=== PATIENT | female | born 1950 | race Two or more races ===

== ENCOUNTER 2025-07-08 15:38 | Emergency (ER) | payer OTHER ==
[~2025-07-08] VITALS: Ht 157.5 cm; Wt 60.3 kg
[2025-07-08] MEDS ORDERED: FLONASE16 GM NS (15:54)
[2025-07-08] MEDS ORDERED: SYNTHROID88 MCG PO (15:54)
[2025-07-08] MEDS ORDERED: LIPITOR20 MG (15:54)
[2025-07-08] MEDS ORDERED: DIPHENHYDRAMINE HCL 50 MG/ML VIAL 1ML ONE (17:49)
[2025-07-08] MEDS ORDERED: METHYLPREDNISOLONE SOD SUCC 125 MG VIAL ONE (17:50)
[2025-07-08] MEDS ORDERED: METHYLPREDNISOLONE SOD SUCC 125 MG VIAL IV ONE (18:00)
[2025-07-08] MEDS ORDERED: DIPHENHYDRAMINE HCL 50 MG/ML VIAL 1ML IV ONE (18:00)
[2025-07-08 18:22] LABS: BASO % 1.0 % (0.1-1.2); EOS # 0.39 (0.04-0.54); EOS % 4.1 % (0.7-7.0); LYMPH # 2.45 (1.18-3.74); LYMPH % 26.0 % (19.3-53.1); MEAN PLATELET VOLUME 11.50 fl (9.4-12.4); MONO # 0.64 (0.24-0.82); MONO % 6.8 % (4.7-12.5); NEUT # 5.83 (1.56-6.13); NEUT % 61.8 % (34.0-71.1); RED CELL DISTRIBUTION WIDTH 14.5 % (11.6-14.4)
[2025-07-08 18:50] LABS: ALT/SGPT 31.0 U/L (12-78); AST/SGOT 31.0 U/L (15-37); BILIRUBIN TOTAL 0.36 mg/dL (0.3-1.2); BUN CREA RATIO 20.0 (7.0-25.0); CREATININE SERUM 1.22 mg/dL (0.55-1.02); GFR 42.97; GLOBULINA 3.8 G/DL (2.4-3.5); GLUCOSE FASTING 110.0 mg/dL (65-100); OSMOLALITY SERUM 279.0 MOSM/KG (275-295)
[2025-07-08 19:53] LABS: URINE APPEARANCE Clear; URINE BILIRRUBIN Negative (NEGATIVE); URINE BLOOD NHT; URINE COLOR Yellow; URINE GLUCOSE Negative (NEGATIVE); URINE KETONE Negative (NEGATIVE); URINE LEUKOCYTE Moderate; URINE NITRATE Negative; URINE PROTEIN Negative (NEGATIVE); URINE UROBILINOGEN 0.2 E.U./dl
[2025-07-08 19:57] LABS: URINE BACTERIA 347.7 uL (0.0-1933); URINE EPITHELIAL CELLS 13.5 uL (0.0-38.8); URINE WBC 405.3 uL (0.0-23.2)
[2025-07-08 20:09] LABS: COVID-19 AG NEGATIVE (NEGATIVE)
[2025-07-08 20:09] LABS: URINE CAST 0.14 uL (0.0-1.40); URINE RBC 1.6 uL (0.0-20.8)
== END 2025-07-09 | disposition home or self-care (01) ==
LOC: ER 16:18
PROVIDERS: Emergency Medicine
DX: N39.0 Urinary tract infection, site not specified (principal); K57.90 Diverticulosis of intestine, part unspecified, without perforation or abscess without bleeding; Z20.822 Contact with and (suspected) exposure to COVID-19; I10 Essential (primary) hypertension; E03.8 Other specified hypothyroidism; Z91.041 Radiographic dye allergy status
CPT/HCPCS: 36415; 74177; 96365; 99284; J1200; J3490; Q9965

== ENCOUNTER 2025-07-15 21:09 | Emergency (ER) | payer OTHER ==
[~2025-07-15] VITALS: Ht 157.5 cm; Wt 59.9 kg
[~2025-07-15 21:09] MED LIST: FLONASE16 GM NS; LIPITOR20 MG; SYNTHROID88 MCG PO
[2025-07-15 21:34] VITALS: BP 181/73; O2SAT 97
[2025-07-15] MEDS ORDERED: PIPERACILLIN/TAZOBACTAM SODIUM 3.375 GM VIAL IV ONE (22:00)
[2025-07-15] MEDS ORDERED: FAMOtidine 10 MG/ML (4ML VIAL) IV ONE (22:00)
[2025-07-15 23:08] LABS: BASO % 0.5 % (0.1-1.2); EOS # 0.46 (0.04-0.54); EOS % 4.8 % (0.7-7.0); LYMPH # 2.59 (1.18-3.74); LYMPH % 27.2 % (19.3-53.1); MEAN PLATELET VOLUME 11.60 fl (9.4-12.4); MONO # 0.82 (0.24-0.82); MONO % 8.6 % (4.7-12.5); NEUT # 5.55 (1.56-6.13); NEUT % 58.5 % (34.0-71.1); RED CELL DISTRIBUTION WIDTH 14.6 % (11.6-14.4)
[2025-07-15 23:28] LABS: URINE APPEARANCE Clear; URINE BILIRRUBIN Negative (NEGATIVE); URINE BLOOD Negative; URINE COLOR Dark Yellow; URINE GLUCOSE Negative (NEGATIVE); URINE KETONE Negative (NEGATIVE); URINE LEUKOCYTE Negative; URINE NITRATE Positive; URINE PROTEIN Negative (NEGATIVE); URINE UROBILINOGEN 1.0 E.U./dl
[2025-07-15 23:29] LABS: URINE EPITHELIAL CELLS 1.6 uL (0.0-38.8); URINE WBC 2.6 uL (0.0-23.2)
[2025-07-15 23:33] LABS: ALT/SGPT 28.0 U/L (12-78); AST/SGOT 21.0 U/L (15-37); BILIRUBIN TOTAL 0.33 mg/dL (0.3-1.2); BUN CREA RATIO 22.0 (7.0-25.0); CREATININE SERUM 0.88 mg/dL (0.55-1.02); GFR 62.64; GLOBULINA 3.5 G/DL (2.4-3.5); GLUCOSE FASTING 105.0 mg/dL (65-100); OSMOLALITY SERUM 284.0 MOSM/KG (275-295)
[2025-07-15 23:34] LABS: URINE BACTERIA 1.1 uL (0.0-1933); URINE CAST 0.00 uL (0.0-1.40); URINE RBC 0.2 uL (0.0-20.8)
[2025-07-15 23:42] LABS: INR 1.05
== END 2025-07-16 01:40 | disposition home or self-care (01) ==
LOC: ER 21:09
PROVIDERS: General Practice
DX: N39.0 Urinary tract infection, site not specified (principal); R10.9 Unspecified abdominal pain; I10 Essential (primary) hypertension; E03.8 Other specified hypothyroidism; Z88.1 Allergy status to other antibiotic agents; Z88.8 Allergy status to other drugs, medicaments and biological substances; Z91.041 Radiographic dye allergy status
CPT/HCPCS: 36415; 74176; 96365; 99284; J2543; J3490